=== PATIENT | male | born 1995 | race Caucasian/White ===

== ENCOUNTER 2024-04-12 11:12 | Emergency (ER) | payer BC, SELFPAY ==
[2024-04-12 11:18] VITALS: BP 148/83
--- NOTE | 2024-04-12 13:21 | ED.SKININJ ---
HPI-Injury
General
Chief Complaint: Skin Problem
Source: patient
Exam Limitations: none
Time Seen by Provider: 04/12/24 13:07
History of Present Illness-Injury
Initial Injury comments:
28 year old male presents with persistent burning/tingling and some redness to left arm. He works at the [employer]. 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 About
half hour after handling the property his arm started to become red burning and tingly. He took 20mg of prednisone x 2 days after being seen by medical at the facility and noted improvement. He has not been on the prednisone since then and notes
symptoms. He denies fevers or chills. He is healthy otherwise. No weakness in the arm. No neck pain. No other complaints at this time.
Phy Exam
Physical Exam
Physical Exam:
General: Well appearing female NAD
HEENT: nc/at
skin: Subtle erythematous hue to the dorsal aspect of the left forearm and upper arm. No vesicles. No fluctuance or induration. This is not tender to the touch. No drainage or lymphangitis.
Neuro: Good function and sensation to the left arm vascular: 2+ radial pulse left wrist
ext: no cyanosis or edema
Course
Vital Signs
Initial and Last Documented VS:
Initial Vital Signs
Temp Pulse Resp BP Pulse Ox
98.2 F 72 16 148/83 98
04/12/24 11:18 04/12/24 11:18 04/12/24 11:18 04/12/24 11:18 04/12/24 11:18
Last Documented Vital Signs
Temp Pulse Resp BP Pulse Ox
98.2 F 72 16 148/83 98
04/12/24 11:18 04/12/24 11:18 04/12/24 11:18 04/12/24 11:18 04/12/24 11:18
MDM/Problems Addressed
Differential Diagnosis Includes:
Left arm erythema and burning sensation after potentially coming in contact with a chemical on inmates property. Question contact dermatitis. No sign of cellulitis. No sign of shingles. This is unlikely to be radiculopathy as there is no
neurologic deficit. Will prescribe a prednisone taper and have him follow-up with family doctor. Stable for discharge
*Critical Care Note
Total Time (30-74mins, 75-104mins- exclusive of procedures): Not Applicable
ED Attending Note
-
Portions of this chart may have been created with voice recognition software.� Occasional wrong word or��sound alike� substitutions may have occurred due to the inherent limitations of voice recognition software.
Discharge Plan
Departure
Patient Disposition: Home (Routine Discharge)
Date of Disposition: 04/12/24
Time of Disposition: 13:32
Patient with high blood pressure during this ER visit?: No
Discharge Problem:
Contact dermatitis
Instructions: Contact dermatitis
Prescriptions:
New
prednisone 10 mg Tablet
See Rx Instructions .ROUTE .COMPLEX Qty: 30 0RF
Rx Instructions:
Take By Mouth:
40 mg daily x3 days, 30 mg daily x3 days,
20 mg daily x3 days, 10 mg daily x3 days.
Referrals:
Rickey Hui DO [Family Provider] -
Activity Restrictions/Additional Instructions:
Continue steroid as directed. Return if worse otherwise follow-up with your doctor
Interventions
Interventions:
*Risk Screen - Suicide Last Done: 04/12/24 11:18
*Neglect/Abuse Screening Last Done: 04/12/24 11:18
Discharge Date and Time
Print Language: CZECH
[2024-04-12 13:42] VITALS: BP 107/65
== END 2024-04-12 13:45 | disposition home or self-care (01) ==
LOC: EMR 11:12
PROVIDERS: EMERGENCY PHYSICIAN Emergency Medicine; FAMILY PHYSICIAN Family Medicine
DX: L25.9 Unspecified contact dermatitis, unspecified cause (principal); R20.2 Paresthesia of skin; X58.XXXA Exposure to other specified factors, initial encounter; Y93.89 Activity, other specified; Y92.149 Unspecified place in prison as the place of occurrence of the external cause; Y99.0 Civilian activity done for income or pay
CPT/HCPCS: 99283

== ENCOUNTER 2024-06-11 22:30 | Emergency (ER) | payer OTHER, SELFPAY ==
[2024-06-11 22:32] VITALS: BP 146/88
[2024-06-11 22:56] LABS: % Basophils 0.4 % (0-2); % Eosinophils 3.5 % (0-6); % Immature Granulocytes 0.3 % (0-0.5); % Monocytes 6.7 % (1.7-9.3); % Neutrophils 75.1 % (42.2-75.2); Absolute Basophils 0.1 10^3/uL (0-0.2); Absolute Eosinophils 0.4 10^3/uL (0-0.7); Absolute Lymphocytes 1.7 10^3/uL (1.2-3.4); Absolute Monocytes 0.8 10^3/uL (0.1-0.6); Absolute Neutrophils 8.9 10^3/uL (1.4-6.5); Hematocrit 40.8 % (39.0-52.0); Mean Corp Hgb Conc. 34.3 g/dL (33.0-37.0); Mean Corpuscular Hgb 30.1 pg (27.0-31.0); Mean Corpuscular Volume 87.7 fL (80.0-94.0); Mean Platelet Volume 9.4 fL (7.4-10.4); Nucleated Red Blood Cells % 0 % (-); Platelet Count 362 10^3/uL (130-400); Red Blood Cell Count 4.65 10^6/uL (4.70-6.10); Red Cell Dist. Width 12.6 % (11.5-14.5); White Blood Cell Count 11.9 10^3/uL (4.8-10.8)
[2024-06-11 23:20] LABS: ALT (SGPT) 56 U/L (0-50); AST (SGOT) 41 U/L (17-59); Albumin 4.1 g/dl (3.5-5.0); Alkaline Phosphatase 116 U/L (38-126); Blood Urea Nitrogen 13 mg/dl (9-20); Calcium 9.8 mg/dl (8.4-10.2); Carbon Dioxide 28 mmol/L (22-30); Chloride 102 mmol/L (98-107); Glucose 111 mg/dl (70-99); Lipase 50 U/L (23-300); Potassium 4.5 mmol/L (3.5-5.1); Sodium 138 mmol/L (135-145); Total Bilirubin 0.4 mg/dl (0.2-1.3); Total Protein 7.4 g/dl (6.3-8.2); eGFR > 60.00
[2024-06-11 23:59] VITALS: BMI 30.9
[2024-06-12] MEDS: ZOFRAN 4 MG IV (00:05)
[2024-06-12] MEDS: NSS 1000 IV (00:05)
[2024-06-12] MEDS: DILAUDID 0.5 MG IV (00:06)
--- NOTE | 2024-06-12 00:20 | ED.GENMED ---
History of Present Illness
General
Chief Complaint: Abdominal Pain
Source: patient
Exam Limitations: none
Time Seen by Provider: 06/11/24 23:35
Nursing documentation reviewed up to this point in time: agreed with
History of Present Illness
History of Present Illness:
This is a 28-year-old male who has history of Crohn's disease initially diagnosed 2017 and had been maintained on Humira for approximately 2 to 3 years. He discontinued Humira approximately 1 year ago and has been feeling well without flares until
more recently, 2 days ago he began with crampy generalized abdominal pain, some abdominal bloating, intermittent lower back pain, nausea as well as feeling somewhat constipated. His last bowel movement was yesterday morning. He denies
hematochezia, denies fever nor chills. Current symptoms feel similar to previous Crohn's flares. Symptoms have been progressing over the past 2 days.
He denies dysuria and urgency nor hematuria. He has been eating normally.
He takes no medicines on a daily basis.
He does follow sporadically with GI at [facility].
Past History
Past History
ED Past Medical History: Other (Crohn's disease)
ED Past Surgical History: Orthopedic (ACL repair bilateral)
Social History
Tobacco: Non-smoker
Alcohol: Occasional
Drug: None
Living: with family
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
Family History
Family History: Other (Noncontributory)
Phy Exam
Physical Exam
Physical Exam:
GENERAL: 28-year-old male appears his stated age, awake and alert, pleasant, appears in no acute distress. Afebrile.
EYE: anicteric
NECK: Supple, nontender, no meningismus, no significant adenopathy.
ENT: oral mucosa is moist. No rhinorrhea.
CARDIAC: Regular rate and rhythm. no murmur.
LUNGS: Clear breath sounds bilaterally, no acute respiratory distress, no wheezes/rales/rhonchi
ABDOMEN: Soft, minimally distended, mild to moderate tenderness right mid to right lower quadrant with mild tenderness globally to the abdomen, no r/g, no cvat. normoactive BS.
NEUROLOGICAL: Alert and oriented x3, no focal neuro deficits. Gait is maay and steady.
SKIN: Warm and dry, normal color, skin intact. No rash.
MUSCULOSKELETAL: No C/C/E. peripheral pulses are full and equal b/l. No palpable tenderness.
PSYCH: Normal and appropriate interaction.
Course
Orders/Labs/Results
Orders:
Orders
06/11/24 22:49
Complete Blood Count/With Diff Urgent
Comprehensive Metabolic Panel Urgent
Lipase Urgent
06/11/24 23:43
0.9% Sodium Chloride 1000 ml [Nss] 1,000 ml IV BOLUS
HYDROmorphone [Dilaudid] 0.5 mg IV NOW STA
Ondansetron Injectable [Zofran] 4 mg IV NOW STA
06/12/24 00:04
CT Abd/pelvis W Iv Cont Urgent
Reason For Exam: abd pain, N, hx crohns
Abnormal Lab Results
06/11/24
22:49
WBC 11.9 H 10^3/uL
(4.8-10.8)
RBC 4.65 L 10^6/uL
(4.70-6.10)
Absolute Neuts (auto) 8.9 H 10^3/uL
(1.4-6.5)
Absolute Monos (auto) 0.8 H 10^3/uL
(0.1-0.6)
Lymphocytes % 14.0 L %
(20.5-51.1)
Glucose 111 H mg/dl
(70-99)
ALT 56 H U/L
(0-50)
06/11/24 22:49
06/11/24 22:49
Vital Signs
Initial and Last Documented VS:
Initial Vital Signs
Temp Pulse Resp BP Pulse Ox
98.3 F 89 14 146/88 99
06/11/24 22:32 06/11/24 22:32 06/11/24 22:32 06/11/24 22:32 06/11/24 22:32
Last Documented Vital Signs
Temp Pulse Resp BP Pulse Ox
98.3 F 68 18 148/72 99
06/11/24 22:32 06/12/24 01:47 06/12/24 01:47 06/12/24 01:47 06/12/24 01:47
MDM/Problems Addressed
Differential Diagnosis Includes:
Concern for acute Crohn's flare, concern for obstruction/pseudoobstruction. Other consideration is constipation, colitis, gastroenteritis.
Chronic conditions affecting care: Other (History of Crohn's disease)
*Radiology
Radiology exam reviewed: radiology read reviewed
*Pulse Oximetry
Patient hypoxic: no
*Critical Care Note
Total Time (30-74mins, 75-104mins- exclusive of procedures): Not Applicable
Update Note
Update Note:
02:00
Patient feeling markedly improved. Resting comfortably. Remains afebrile.
CAT scan shows no evidence of bowel wall inflammation, no obstruction. There is note of mildly prominent mesenteric lymph nodes with fluid-filled small bowel which is nonspecific but may be seen with viral syndrome or mesenteric adenitis. No free
fluid nor free air.
Recommend short course of prednisone for potential subtle Crohn's flare along with bland diet.
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
Patient request out of work note for Thursday and Thursday, he plans to return to work this afternoon.
ED Attending Note
-
Portions of this chart may have been created with voice recognition software.� Occasional wrong word or��sound alike� substitutions may have occurred due to the inherent limitations of voice recognition software.
Discharge Plan
Departure
Patient Disposition: Home (Routine Discharge)
Date of Disposition: 06/12/24
Time of Disposition: 03:10
Patient with high blood pressure during this ER visit?: No
Condition: Good
Discharge Problem:
Acute abdominal pain, History of Crohn's disease, Acute mesenteric adenitis
Instructions: Clear Liquid Diet, Mesenteric Lymphadenitis
Prescriptions:
New
prednisone 10 mg tablets,dose pack
See Rx Instructions .ROUTE .COMPLEX Qty: 21 0RF
Rx Instructions:
orally per package directions
Referrals:
Rickey Hui Do, [Other]
Rickey Hui DO [Family Provider] -
Stand Alone Forms: Return to Work
Interventions
Interventions:
*Risk Screen - Suicide Last Done: 06/11/24 22:32
*General Assessment Last Done: 06/11/24 22:32
*Neglect/Abuse Screening Last Done: 06/11/24 22:32
*ED COVID-19 Vaccine History Last Done: 06/11/24 22:32
QA-Tjbibv-Mcwmvxwmzb Assessment Last Done: 06/12/24 00:11
Discharge Date and Time
Print Language: LIBERIAN
[2024-06-12 01:47] VITALS: BP 148/72
== END 2024-06-12 03:35 | disposition home or self-care (01) ==
LOC: EMR 22:30
PROVIDERS: EMERGENCY PHYSICIAN Emergency Medicine; FAMILY PHYSICIAN Family Medicine
DX: I88.0 Nonspecific mesenteric lymphadenitis (principal); K50.90 Crohn's disease, unspecified, without complications
CPT/HCPCS: 96374; 96375; 96361; 99284; 74177; 80053; 83690; 85025; Q9967

== ENCOUNTER 2024-07-02 19:46 | Emergency (ER) | payer OTHER, SELFPAY ==
[2024-07-02 19:56] VITALS: BP 114/89
[2024-07-02 20:08] LABS: Urine Albumin 2+ (Neg - Trace); Urine Bilirubin Negative (Negative); Urine Character Clear (Clear); Urine Color Yellow; Urine Glucose Negative (Negative); Urine Ketone 3+ (Negative); Urine Leukocyte Negative (Negative); Urine Nitrite Negative (Negative); Urine Occult Blood 4+ (Negative); Urine Urobilinogen Negative (Neg - 1+)
[2024-07-02 20:23] LABS: % Basophils 0.3 % (0-2); % Immature Granulocytes 0.5 % (0-0.5); % Lymphocytes 6.9 % (20.5-51.1); % Monocytes 5.5 % (1.7-9.3); % Neutrophils 85.8 % (42.2-75.2); Absolute Basophils 0.1 10^3/uL (0-0.2); Absolute Eosinophils 0.2 10^3/uL (0-0.7); Absolute Immature Granulocytes 0.1 10^3/uL (0-0.05); Absolute Lymphocytes 1.2 10^3/uL (1.2-3.4); Absolute Neutrophils 14.7 10^3/uL (1.4-6.5); Hemoglobin 14.8 g/dL (13.0-18.0); Mean Corp Hgb Conc. 34.4 g/dL (33.0-37.0); Mean Corpuscular Hgb 30.4 pg (27.0-31.0); Mean Corpuscular Volume 88.3 fL (80.0-94.0); Mean Platelet Volume 9.1 fL (7.4-10.4); Nucleated Red Blood Cells % 0 % (-); Platelet Count 397 10^3/uL (130-400); Red Blood Cell Count 4.87 10^6/uL (4.70-6.10); Red Cell Dist. Width 12.4 % (11.5-14.5); White Blood Cell Count 17.2 10^3/uL (4.8-10.8)
[2024-07-02 20:32] LABS: Urine Bacteria Few (Negative); Urine Squamous Cell 0-2 /LPF (Few)
[2024-07-02 20:39] LABS: ALT (SGPT) 57 U/L (0-50); AST (SGOT) 47 U/L (17-59); Albumin 4.3 g/dl (3.5-5.0); Alkaline Phosphatase 128 U/L (38-126); Blood Urea Nitrogen 12 mg/dl (9-20); Calcium 10.3 mg/dl (8.4-10.2); Carbon Dioxide 30 mmol/L (22-30); Chloride 102 mmol/L (98-107); Glucose 104 mg/dl (70-99); Lipase 47 U/L (23-300); Potassium 5.1 mmol/L (3.5-5.1); Sodium 141 mmol/L (135-145); Total Bilirubin 0.9 mg/dl (0.2-1.3); Total Protein 7.8 g/dl (6.3-8.2); eGFR > 60.00
[2024-07-02 22:03] VITALS: BP 148/89
[2024-07-02 22:10] VITALS: BMI 31.0
--- NOTE | 2024-07-02 22:53 | ED.GENMED ---
History of Present Illness
General
Chief Complaint: Abdominal Pain
Source: patient
Exam Limitations: none
Time Seen by Provider: 07/02/24 22:40
Nursing documentation reviewed up to this point in time: agreed with
History of Present Illness
History of Present Illness:
Pleasant 28-year-old male presents to the emergency department with nausea vomiting and abdominal pain that has been present for the last 2 days. The patient states that for the last few weeks he has not been able to have a normal bowel movement.
He states that this morning he had a small soft stool. Patient does have flank pain right side greater than left. Patient has a history of Crohn's disease and is followed by [facility]. Denies chest pain or shortness of breath. Patient
was seen at the beginning of the month and had a CAT scan.
Past History
Past History
ED Past Medical History: Other (Crohn's disease)
ED Past Surgical History: Orthopedic (ACL repair bilateral)
Social History
Tobacco: Non-smoker
Alcohol: Occasional
Drug: None
Living: with family
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
Family History
Family History: Other (Noncontributory)
Review of Systems
Review of Systems
Allergies reviewed?: Yes
All Other Systems: ROS reviewed and negative except as documented in HPI and ROS
Constitutional: Reports no symptoms
EENT: Reports no symptoms
Respiratory: Reports no symptoms
Cardiac: Reports no symptoms
ABD/GI: Reports abdominal pain, nausea, diarrhea and constipated
: Reports no symptoms
Musculoskeletal: Reports no symptoms
Skin: Reports no symptoms
Neurological: Reports no symptoms
Endocrine: Reports no symptoms
Hematologic/Lymphatic: Reports no symptoms
Psychiatric: Reports no symptoms
Phy Exam
General Physical Exam
General Presentation: well appearing and no apparent distress
General Skin: warm and dry
General Habitus: normal
General Mental: alert
General Hydration: appears well hydrated
ENT Exam
ENT Exam: EOMI, pharynx normal, neck supple and normocephalic
Eye Exam
Eye Exam: PERRL, cornea clear and conjunctiva normal
Cardiovascular Exam
Cardiovascular Exam: regular rate/rhythm, no edema, no murmur and normal peripheral pulses
Pulmonary Exam
Pulmonary Exam: lungs clear, no respiratory distress, no rales, no crackles, no rhonchi, no stridor, no wheezing and no cough
Gastrointestinal Exam
Gastrointestinal Exam: normal bowel sounds, soft, no organomegaly, no pulsatile mass, non distended and tender
Palpation: left upper quadrant: Minimal tenderness, right upper quadrant: Minimal tenderness and generalized: Minimal tenderness
Neurological Exam
Neurological Exam: alert, oriented x3, no motor deficits and speech normal
Musculoskeletal Exam
Musculoskeletal Exam: full ROM and no edema
Skin Exam
Skin Exam: normal color, warm/dry, no rash and no petechia
Psychiatric Exam
Psychiatric Exam: normal mood/affect
Course
Orders/Labs/Results
Orders:
Orders
07/02/24 20:03
UA Reflex to Culture [Urinalysis Reflex To Culture] Urgent
Date Specimen was Collected: 07/02/24
Time Specimen was Collected: 20:01
Urine Microscopic Reflex Cult Urgent
07/02/24 20:06
Complete Blood Count/With Diff Urgent
Comprehensive Metabolic Panel Urgent
Lipase Urgent
Monotest Urgent
Comment: ADD ON
07/02/24 23:04
0.9% Sodium Chloride 1000 ml [Nss] 1,000 ml IV BOLUS
Ondansetron Injectable [Zofran] 4 mg IV NOW STA
07/03/24 00:01
CT Abd/pelvis W Iv Cont Urgent
Reason For Exam: diffuse abd pain, hx of crohns, hematuria
07/03/24 00:37
Morphine Sulfate 4 mg IV NOW STA
07/03/24 03:24
Add On- LAB Urgent
Tests Added?: monospot
07/03/24 03:26
Amoxicillin 875 mg/Clav 125 mg [Augmentin 875 mg/125 mg] 1 tablet PO NOW STA
Abnormal Lab Results
07/02/24 07/02/24
20:03 20:06
WBC 17.2 H 10^3/uL
(4.8-10.8)
Abs Immat Gran (auto) 0.1 H 10^3/uL
(0-0.05)
Absolute Neuts (auto) 14.7 H 10^3/uL
(1.4-6.5)
Absolute Monos (auto) 1.0 H 10^3/uL
(0.1-0.6)
Neutrophils % 85.8 H %
(42.2-75.2)
Lymphocytes % 6.9 L %
(20.5-51.1)
Glucose 104 H mg/dl
(70-99)
Calcium 10.3 H mg/dl
(8.4-10.2)
ALT 57 H U/L
(0-50)
Alkaline Phosphatase 128 H U/L
(38-126)
Urine Ketones 3+ A
(Negative)
Ur Occult Blood Reflex 4+ A
(Negative)
Urine RBC 7-10 A /HPF
(0-2)
Urine Bacteria (Reflex) Few A
(Negative)
Urine Albumin (Reflex) 2+ A
(Neg - Trace)
07/02/24 20:06
07/02/24 20:06
Vital Signs
Initial and Last Documented VS:
Initial Vital Signs
Temp Pulse Resp BP Pulse Ox
99.1 F 84 18 114/89 97
07/02/24 19:56 07/02/24 19:56 07/02/24 19:56 07/02/24 19:56 07/02/24 19:56
Last Documented Vital Signs
Temp Pulse Resp BP Pulse Ox
99.1 F 84 18 141/77 95
07/02/24 19:56 07/02/24 19:56 07/02/24 19:56 07/03/24 03:00 07/03/24 03:30
*Critical Care Note
Total Time (30-74mins, 75-104mins- exclusive of procedures): Not Applicable
Update Note
Update Note:
CT ABDOMEN AND PELVIS with IV contrast
IMPRESSION:
Comparison: 06/12/2024.
Wall thickening within loops of proximal small bowel, similar compared to the prior and likely representing a persistent or recurrent enteritis. Differential includes celiac disease and angioedema of the small bowel.
No bowel obstruction. Wall thickening in the left colon is likely due to underdistention.
Small amount of pelvic free fluid. No free air or abscess.
Multiple prominent mesenteric lymph nodes, similar compared to the prior and possibly reactive.
Borderline hepatosplenomegaly.
Unremarkable kidneys and bladder.
Discussed CAT scan with patient.
He is resting comfortably at this point.
Patient does have Crohn's and states that this feels similar to a flareup.
White blood cell count is at 17.2 which is increased from previous blood work.
Diagnosis is likely a persistent enteritis. He has not been on antibiotics recently. Will start a course of Augmentin.
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
ED Attending Note
-
Portions of this chart may have been created with voice recognition software.� Occasional wrong word or��sound alike� substitutions may have occurred due to the inherent limitations of voice recognition software.
Discharge Plan
Departure
Patient Disposition: Home (Routine Discharge)
Date of Disposition: 07/03/24
Time of Disposition: 03:26
Patient with high blood pressure during this ER visit?: Yes
Discharge Problem:
Enteritis
Instructions: Crohn disease in adults, Abdominal Pain
Prescriptions:
New
amoxicillin-pot clavulanate 875-125 mg tablet
1 tab PO BID Qty: 20 0RF
No Action
prednisone 10 mg tablets,dose pack
See Rx Instructions .ROUTE .COMPLEX Qty: 21 0RF
Rx Instructions:
orally per package directions
Referrals:
Rickey Hui Do, [Other]
Rickey Hui, [Family Provider] -
Activity Restrictions/Additional Instructions:
It was a pleasure meeting you and taking part in your care. We hope for your continued healing and wellness.
Please read discharge instructions in their entirety. However, they are for general education and may not describe your exact diagnosis at discharge. Information on your ER visit and medical conditions were discussed with you along with appropriate
follow up information...
If indicated, please take your medications as instructed and indicated on discharge paperwork.
Please schedule a follow up appointment as directed. Call to schedule an appointment
Please return to the emergency department with ANY change in, persisting, or worsening of symptoms. If any of your symptoms do not improve, or persist, or become more severe within 6-12 hours, please return to the emergency department for further
care.
Please return to the emergency department if you develop a headache, neck pain/stiffness, fever greater than 100.4F, chest pain, shortness of breath, persistent nausea, vomiting, slurred speech, difficulty walking, numbness/tingling, weakness, signs
of infection or any other symptoms that are worrisome to you.
If you have any questions or concerns please do not hesitate to call the Hospital at or E-mail me directly at [email or web address]
Interventions
Interventions:
*Risk Screen - Suicide Last Done: 07/02/24 19:56
*General Assessment Last Done: 07/02/24 19:56
*Neglect/Abuse Screening Last Done: 07/02/24 19:56
*ED COVID-19 Vaccine History Last Done: 07/02/24 19:56
*Nursing Disposition Last Done: 07/03/24 03:40
LW-Brxhle-Amzntspvdh Assessment Last Done: 07/02/24 22:10
Discharge Date and Time
Discharge Date/Time: 07/03/24 03:40
Print Language: MALAY
[2024-07-02 23:00] VITALS: BP 144/74
[2024-07-02] MEDS: ZOFRAN 4 MG IV (23:18)
[2024-07-02] MEDS: NSS 1000 IV (23:19)
[2024-07-03] VITALS: BP 142/78
[2024-07-03] MEDS: MORPHINE SULFATE 4 MG IV (00:42)
[2024-07-03 01:00] VITALS: BP 150/76
[2024-07-03 02:00] VITALS: BP 142/82
[2024-07-03 03:00] VITALS: BP 141/77
[2024-07-03] MEDS: AUGMENTIN 875 MG/125 MG 1 TABLET PO (03:31)
[2024-07-03 04:08] LABS: Monotest Negative (Negative)
== END 2024-07-03 03:40 | disposition home or self-care (01) ==
LOC: EMR 19:46
PROVIDERS: Emergency Medicine; EMERGENCY PHYSICIAN Student in an Organized Health Care Education/Training Program; FAMILY PHYSICIAN Family Medicine
DX: K52.9 Noninfective gastroenteritis and colitis, unspecified (principal); Z87.19 Personal history of other diseases of the digestive system
CPT/HCPCS: 99284; 96374; 96375; 96361; 74177; 80053; 81003; 81015; 83690; 85025; 86308; Q9967